=== PATIENT | female | born 1960 | race African-American/Black ===

== ENCOUNTER 2019-04-10 14:50 | Inpatient (IN) | payer OTHER ==
--- NOTE | 2019-04-10 19:43 | BHS.RME ---
Substance Use & Tx History - Last Treatment Where was last treatment: Detox CIWA Nausea/Vomitin Muscle Tremors: 4-Moderate,w/Arms Extend Anxiety: 3 Agitation: 2 Paroxysmal Sweats: 1-Minimal Palms Moist (Patient is not actively withdrawing. She reports detox at [facility]. Patient will benefit from Rehab.) Orientation: 0-Oriented Tacttile Disturbances: 0-None Auditory Disturbances: 0-None Visual Disturbances: 0-None Headache: 3-Moderate CIWA-Ar Total Score: 15
[2019-04-10 20:21] VITALS: BMI 25.0
--- NOTE | 2019-04-10 20:46 | HP ---
CIWA Score Nausea/Vomitin-No Nausea/No Vomiting Muscle Tremors: 2 Anxiety: 4-Mod. Anxious/Guarded Agitation: 4-Moderately Restless Paroxysmal Sweats: 1-Minimal Palms Moist (Patient is not actively withdrawing. She reports detox at [facility]. Patient will benefit from Rehab.) Orientation: 2-Disoriented Date<2 days Tacttile Disturbances: 1-Very Mild Itch/Numbness Auditory Disturbances: 2-Mild Harshness/Frighten Visual Disturbances: 2-Mild Sensitivity Headache: 2-Mild CIWA-Ar Total Score: 20 - Admission Criteria OASAS Guidelines: Admission for Medically Managed Detox: Requires at least one of the followin. CIWA greater than 12 2. Seizures within the past 24 hours 3. Delirium tremens within the past 24 hours 4. Hallucinations within the past 24 hours 5. Acute intervention needed for co occurring medical disorder 6. Acute intervention needed for co occurring psychiatric disorder 7. Severe withdrawal that cannot be handled at a lower level of care (continued vomiting, continued diarrhea, abnormal vital signs) requiring intravenous medication and/or fluids 8. Admitting History and Physical - Past Medical History ...: No - Smoking History Smoking history: Current every day smoker Have you smoked in the past 12 months: No Aproximately how many cigarettes per day: 3 Admission ROS S - HPI Allergies/Adverse Reactions: Allergies Allergy/AdvReac Type Severity Reaction Status Date / Time Penicillins Allergy Verified 04/10/19 20:10 FRUIT JUICE Allergy Hives Uncoded 04/10/19 20:10 History of Present Illness: 58 y.o. female here for detox from alcohol use , reports 1 x 6-pk /day since age 23 , reports not daily use , reports drinking 5-6 x/week , denies seizures , reports occasional tremors , latest use yesterday . Exam Limitations: Clinical Condition - Review of Systems Constitutional: Loss of Appetite, Unintentional Wgt. Loss (reports wt loss 30 lbs in 3 mo) EENT: reports: Other (glasses) Respiratory: reports: No Symptoms reported Cardiac: reports: No Symptoms Reported GI: reports: See HPI : reports: No Symptoms Reported Musculoskeletal: reports: Muscle Pain (neck pain intermittently , known OA neck, spine , knees) Integumentary: reports: Other (vitiligo , went to ER for rash) Neuro: reports: See HPI, Headache Endocrine: reports: See HPI, Other (states does not know whether she is diabetic) Hematology: reports: Anemia Psychiatric: reports: Agitated, Anxious, Disorientated Patient History - Patient Medical History Hx Asthma: No Hx Chronic Obstructive Pulmonary Disease (COPD): No Hx Cardiac Disorders: No Hx Hypertension: No Hx Seizures: No Hx Diabetes: No Hx Gastrointestinal Disorders: No Hx Genitourinary Disorders: No Hx Sexually Transmitted Disorders: No Hx Renal Disease (ESRD): No Hx Depression: Yes Hx Suicide Attempt: Yes Hx Schizophrenia: No - Patient Surgical History Past Surgical History: No Hx Neurologic Surgery: No Hx Cataract Extraction: No Hx Cardiac Surgery: No Hx Lung Surgery: No Hx Breast Surgery: No Hx Breast Biopsy: No Hx Abdominal Surgery: No Hx Appendectomy: No Hx Cholecystectomy: No Hx Genitourinary Surgery: No Hx Section: No Hx Orthopedic Surgery: No Anesthesia Reaction: No - PPD History Previous Implant?: Yes - Reproductive History Patient : No - Smoking Cessation Smoking history: Current every day smoker Have you smoked in the past 12 months: No Aproximately how many cigarettes per day: 3 Hx Chewing Tobacco Use: No Initiated information on smoking cessation: No - Substances abused Alcohol Substance route: Oral Frequency: Daily Amount used: 6 cans of beer Age of first use: 20 Date of last use: 04/10/19 Cocaine Substance route: Inhalation Frequency: Daily Amount used: 60 dollars Age of first use: 23 Date of last use: 04/10/19 Admission Physical Exam BHS - Vital Signs Vital Signs: Vital Signs - 24 hr 04/10/19 20:10 Temperature 97.4 F L Pulse Rate 52 L Respiratory 18 Rate Blood Pressure 153/63 - Physical General Appearance: Yes: Severe Distress, Irritable, Anxious, Other (agitated , hostile and beligerant) HEENTM: Yes: EOMI, Hearing grossly Normal, Normocephalic, Normal Voice Respiratory: Yes: Chest Non-Tender, Lungs Clear, Normal Breath Sounds, No Respiratory Distress, No Accessory Muscle Use Neck: Yes: No masses,lesions,Nodules, Trachea in good position Cardiology: Yes: Regular Rhythm, Regular Rate, S1, S2 Abdominal: Yes: Non Tender, Soft Back: Yes: Normal Inspection Extremities: Yes: Normal Range of Motion, Non-Tender, Other ( r hip pain x 3 mo) Neurological: Yes: Alert, Motor Strength 5/5, Other ( agitated) Integumentary: Yes: Warm, Other (vitiligo) - Diagnostic (1) Cocaine use disorder Current Visit: Yes Status: Chronic (2) Alcohol use disorder Current Visit: Yes Status: Chronic (3) Nicotine dependence Current Visit: Yes Status: Chronic Qualifiers: Nicotine product type: cigarettes Breathalyzer - Breathalyzer Breathalyzer: 0 Inpatient Rehab Admission - Rehab Decision to Admit Inpatient rehab admission?: No
[2019-04-10] MEDS ORDERED: ACETAMINOPHEN 325 MG TABLET (FP) PO PRN ×2 (20:55)
[2019-04-10] MEDS ORDERED: METHOCARBAMOL 500 MG TABLET PO PRN (20:55)
[2019-04-10] MEDS ORDERED: BISMUTH SUBSALICYLATE 524 MG/30 ML UD PO PRN (20:55)
[2019-04-10] MEDS ORDERED: IBUPROFEN 400 MG TABLET (FP) PO PRN (20:55)
[2019-04-10] MEDS ORDERED: NICOTINE POLACRILEX 2 MG GUM BUC PRN (20:55)
[2019-04-10] MEDS ORDERED: hydrOXYzine PAMOATE 25 MG CAPSULE (FP) PO PRN (20:55)
[2019-04-10] MEDS ORDERED: MAGNESIUM CITRATE 300 ML BOTTLE PO PRN (20:55)
[2019-04-10] MEDS ORDERED: MAGNESIUM HYDROX 2400MG/30ML ORAL SUSPENSION 30 ML CUP PO PRN (20:55)
[2019-04-10] MEDS ORDERED: MAG HYDROX/AL HYDROX/SIMETH 30 ML UNIT-DOSE CUP PO PRN (20:55)
[2019-04-10] MEDS ORDERED: MENTHOL/PHENOL 1 EACH UD MM PRN (20:55)
[2019-04-10] MEDS ORDERED: MELATONIN 5 MG TABLETS PO PRN (20:55)
[2019-04-10] MEDS ORDERED: diazePAM 5 MG TABLET PO PRN (20:57)
[2019-04-10] MEDS: ASPIRIN COATED 81 MG TABLET.EC PO SCH (21:39)
[2019-04-10] MEDS: diazePAM 5 MG TABLET PO SCH (21:39)
[2019-04-10] MEDS: THIAMINE HCL 100 MG TABLET (FP) PO SCH (21:40)
[2019-04-11] MEDS: diphenhydrAMINE HCL 25 MG CAPSULE (FP) PO SCH ×5 (05:49→23:11)
[2019-04-11] MEDS: diazePAM 5 MG TABLET PO SCH ×3 (06:18→22:22)
--- NOTE | 2019-04-11 09:10 | PN ---
S CIWA - CIWA Score Nausea/Vomitin Muscle Tremors: 3 Anxiety: 3 Agitation: 0-Normal Activity Paroxysmal Sweats: 2 Orientation: 1-Uncertain about Date Tacttile Disturbances: 0-None Auditory Disturbances: 0-None Visual Disturbances: 2-Mild Sensitivity Headache: 2-Mild CIWA-Ar Total Score: 15 S Progress Note (SOAP) Subjective: 58 years old female admitted on 04/10/19 for alcohol withdrawal sx management treating with valium detox regiment requests aspirin po daily "for oxygen goes to my heart" ensure Ms Blue aspirin today and daily after requests ensure for poor appetite ensure supplement registered safety engineer referral reports allergic to banana requests to be seen by a station cashier adding banana to allergy/adverse reaction Objective: 04/11/19 09:06 Vital Signs Temperature 97.7 F 04/11/19 06:53 Pulse Rate 52 L 04/11/19 06:53 Respiratory Rate 18 04/11/19 07:26 Blood Pressure 158/64 04/11/19 06:53 O2 Sat by Pulse Oximetry (%) 04/11/19 09:07 lab pending 04/11/19 09:10 bp elevation resume amlodipine 10 mg po daily Assessment: 04/11/19 09:11 alcohol withdrawal Plan: valium regiment
[2019-04-11] MEDS: ASPIRIN COATED 81 MG TABLET.EC PO SCH (10:31)
[2019-04-11] MEDS: amLODIPine BESYLATE 10 MG TABLET (FP) PO SCH (10:31)
[2019-04-11] MEDS: predniSONE 20 MG TABLET (UD) PO SCH (10:31)
[2019-04-11] MEDS: PRENATAL VITAMINS W/ FOLIC ACID TABLET (FP) PO SCH (10:31)
[2019-04-11 10:58] LABS: HEMATOCRIT 32.3 % (32.4-45.2); HEMOGLOBIN 10.7 GM/dL (10.7-15.3); MCH 29.9 pg (25.7-33.7); MCHC 33.1 g/dl (32.0-36.0); MEAN CELL VOLUME 90.5 fl (80-96); MEAN PLT VOLUME 8.5 fl (7.5-11.1); PLATELET COUNT 351 K/MM3 (134-434); RBC 3.57 M/mm3 (3.60-5.2); RDW 13.8 % (11.6-15.6)
[2019-04-11 11:08] LABS: ALBUMIN 3.4 g/dl (3.4-5.0); BILIRUBIN,TOTAL 0.3 mg/dL (0.2-1); BLOOD UREA NITROGEN 20.4 mg/dL (7-18); CALCIUM 9.1 mg/dL (8.5-10.1); CREATININE 1.1 mg/dL (0.55-1.3); POTASSIUM 4.4 mmol/L (3.5-5.1)
--- NOTE | 2019-04-11 16:50 | EKG ---
Test Reason : Blood Pressure : / mmHG Vent. Rate : 052 BPM Atrial Rate : 052 BPM P-R Int : 172 ms QRS Dur : 082 ms QT Int : 450 ms P-R-T Axes : 036 041 -46 degrees QTc Int : 418 ms SINUS BRADYCARDIA WITH MARKED SINUS ARRHYTHMIA MINIMAL VOLTAGE CRITERIA FOR LVH, MAY BE NORMAL VARIANT T WAVE ABNORMALITY, CONSIDER INFEROLATERAL ISCHEMIA ABNORMAL ECG Confirmed by MD UMESH, JENNIFER ([id number]) on 04/11/2019 4:49:42 PM Referred By: CHRIS Confirmed By:JENNIFER CALVO MD
[2019-04-11] MEDS: THIAMINE HCL 100 MG TABLET (FP) PO SCH (22:22)
[2019-04-12] MEDS ORDERED: diazePAM 5 MG TABLET PO SCH (06:00)
[2019-04-12] MEDS: diphenhydrAMINE HCL 25 MG CAPSULE (FP) PO SCH ×2 (06:59→12:58)
[2019-04-12] MEDS ORDERED: cloNIDine HCL 0.1 MG TABLET PO PRN (09:59)
--- NOTE | 2019-04-12 10:01 | PN ---
[facility] CIWA - CIWA Score Nausea/Vomitin-No Nausea/No Vomiting Muscle Tremors: 2 Anxiety: 2 Agitation: 2 Paroxysmal Sweats: 2 Orientation: 0-Oriented Tacttile Disturbances: 1-Very Mild Itch/Numbness Auditory Disturbances: 0-None Visual Disturbances: 0-None Headache: 1-Very Mild CIWA-Ar Total Score: 10 S Progress Note (SOAP) Subjective: 58 years old female admitted on 04/10/19 for alcohol withdrawal sx management treating with valium detox regiment patient exhibits aggressive threatening behavior toward a male peer in day room multidisciplinary team includes nursing supervisor packing room, the nurse, railroad construction director, counselor, and account underwriter patient refuses to be seen by a psychiatrist yesterday be seen by a psychiatrist today patient denies suicidal no homocidal ideation no self destructive behavior patient is alert oriented x 3 no acute distress Objective: 04/12/19 10:19 Vital Signs Temperature 97.1 F L 04/12/19 08:46 Pulse Rate 58 L 04/12/19 08:46 Respiratory Rate 16 04/12/19 08:46 Blood Pressure 150/60 04/12/19 08:46 O2 Sat by Pulse Oximetry (%) Laboratory Last Values WBC 7.0 K/mm3 (4.0-10.0) 04/11/19 08:00 RBC 3.57 M/mm3 (3.60-5.2) L 04/11/19 08:00 Hgb 10.7 GM/dL (10.7-15.3) 04/11/19 08:00 Hct 32.3 % (32.4-45.2) L 04/11/19 08:00 MCV 90.5 fl (80-96) 04/11/19 08:00 MCH 29.9 pg (25.7-33.7) 04/11/19 08:00 MCHC 33.1 g/dl (32.0-36.0) 04/11/19 08:00 RDW 13.8 % (11.6-15.6) 04/11/19 08:00 Plt Count 351 K/MM3 (134-434) 04/11/19 08:00 MPV 8.5 fl (7.5-11.1) 04/11/19 08:00 Sodium 139 mmol/L (136-145) 04/11/19 08:00 Potassium 4.4 mmol/L (3.5-5.1) 04/11/19 08:00 Chloride 106 mmol/L (98-107) 04/11/19 08:00 Carbon Dioxide 27 mmol/L (21-32) 04/11/19 08:00 Anion Gap 5 MMOL/L (8-16) L 04/11/19 08:00 BUN 20.4 mg/dL (7-18) H 04/11/19 08:00 Creatinine 1.1 mg/dL (0.55-1.3) 04/11/19 08:00 Est GFR (CKD-EPI)AfAm 64.54 04/11/19 08:00 Est GFR (CKD-EPI)NonAf 55.69 04/11/19 08:00 Random Glucose 120 mg/dL (74-106) H 04/11/19 08:00 Calcium 9.1 mg/dL (8.5-10.1) 04/11/19 08:00 Total Bilirubin 0.3 mg/dL (0.2-1) 04/11/19 08:00 AST 17 U/L (15-37) 04/11/19 08:00 ALT 21 U/L (13-61) 04/11/19 08:00 Alkaline Phosphatase 74 U/L (45-117) 04/11/19 08:00 Total Protein 7.0 g/dl (6.4-8.2) 04/11/19 08:00 Albumin 3.4 g/dl (3.4-5.0) 04/11/19 08:00 RPR Titer Nonreactive (NONREACTIVE) 04/11/19 08:00 lab noted long history of hypertension none adherence with antihypertensive medication encourage picker/puller medication from pharmacy 04/12/19 11:29 Assessment: 04/12/19 11:33 alcohol withdrawal Plan: valium regiment
--- NOTE | 2019-04-12 10:05 | CONSULT ---
[facility] Psychiatric Consult - Data Date of interview: 04/12/19 Admission source: [facility] Identifying data: Patient is a 58 year old single female, without children, unemployed, and is not currently receiving financial assistance. This is patient's first admission to detox at [facility]. Patient admitted to for alcohol and cocaine dependence. Substance Abuse History: Smoking Cessation. Smoking history: Current every day smoker. Have you smoked in the past 12 months: No. Aproximately how many cigarettes per day: 3. Hx Chewing Tobacco Use: No. Initiated information on smoking cessation: No. - Substances abused. Alcohol. Substance route: Oral. Frequency: Daily. Amount used: 6 cans of beer. Age of first use: 20. Date of last use: 04/10/19. Cocaine. Substance route: Inhalation. Frequency: Daily. Amount used: 60 dollars. Age of first use: 23. Date of last use: 04/10/19 Medical History: denies. Psychiatric History: Patient reports history of one psychiatric hospitalizations in the at [facility] in [place], [place]. Patient states she was experiencing alot of stressors and was able to admit herself into a psychiatric unit (unable to be specific). She reports one CPEP admission at [facility] in the after her mother called 911 as she thought her daugher was going to hurt herself. Patient reports a vague history of current outpatient psychiatric care. States that she last saw a psychiatrist on [address] several months ago and was prescribed seroquel 50mg. Patient reports poor compliance with medications. Reports a past diagnosis of bipolar disorder. Patient is slightly irritable. She denies auditory/visual hallucinations, sucidal/homicidal ideation. No psychosis noted. Physical/Sexual Abuse/Trauma History: denies. Mental Status Exam - Mental Status Exam Alert and Oriented to: Time, Place, Person Cognitive Function: Good Patient Appearance: Well Groomed Mood: Irritable Affect: Mood Congruent Patient Behavior: Cooperative (cooperative while speaking with instructional writer) Speech Pattern: Appropriate Voice Loudness: Normal Thought Process: Goal Oriented Thought Disorder: Not Present Hallucinations: Denies Suicidal Ideation: Denies Homicidal Ideation: Denies Sleep: Poorly Appetite: Fair Muscle strength/Tone: Normal Gait/Station: Normal Psychiatric Findings - Problem List ([place] 1, 2,3) (1) Substance induced mood disorder Status: Suspected (2) Alcohol use disorder Status: Acute (3) Cocaine use disorder Status: Chronic (4) Nicotine dependence Status: Acute Qualifiers: Nicotine product type: cigarettes Substance use status: in withdrawal Qualified Code(s): F17.213 - Nicotine dependence, cigarettes, with withdrawal (5) Mood disorder Status: Chronic - Initial Treatment Plan Initial Treatment Plan: Psychoeducation provided. Detoxification in progress. Will order Seroquel 25mg HS. Patient not intested in accepting additional medications during the day for irritability as she reports already being prescribed valium +benadryl. Benefits and side effects discussed. Verbal consent given.
[2019-04-12] MEDS: amLODIPine BESYLATE 10 MG TABLET (FP) PO SCH (10:38)
[2019-04-12] MEDS: ASPIRIN COATED 81 MG TABLET.EC PO SCH (10:38)
[2019-04-12] MEDS: PRENATAL VITAMINS W/ FOLIC ACID TABLET (FP) PO SCH (10:38)
[2019-04-12] MEDS: predniSONE 20 MG TABLET (UD) PO SCH (10:38)
--- NOTE | 2019-04-12 13:17 | DS ---
[facility] Detox Discharge Summary Admission Date: 04/10/19 Discharge Date: 04/12/19 - History Present History: Alcohol Dependence Additional Comments: 58 years old female admitted on 04/10/19 for alcohol withdrawal sx management treated with valium detox regiment seen by psychiatrist no medical intervention at this time Ms Loza is one day short than estimated discharge date of 04/13/19 reports feeling better accept aftercare at [facility] respiratory clear lungs bilaterally on auscultation extremities full range of motion skin warm and dry - Physical Exam Results Vital Signs: Vital Signs Temperature 97.1 F L 04/12/19 08:46 Pulse Rate 58 L 04/12/19 08:46 Respiratory Rate 16 04/12/19 08:46 Blood Pressure 150/60 04/12/19 08:46 O2 Sat by Pulse Oximetry (%) Pertinent Admission Physical Exam Findings: time for discharge 64 minutes multidisciplinary team met with the patient due to verbal confrontation with peer security were called nursing coordinator was present, city director join the safety discussion with the patient Ms Loza remain confrontational and augmentative the team made consensus decision that Ms Loza may benefit from [facility] program - Treatment Hospital Course: Detox Protocol Followed, Detoxed Safely, Responded well, Discharged Condition Good, Rehab Referral Accepted Patient has Accepted a Rehab Referral to: [facility] - Medication Discharge Medications: Ambulatory Orders Diphenhydramine [Benadryl Capsule -] 50 mg PO QID PRN #12 capsule 04/10/19 predniSONE [Deltasone -] 40 mg PO DAILY 2 Days #4 tablet 04/10/19 Amlodipine Besylate [Norvasc -] 10 mg PO DAILY #30 tablet 04/12/19 - Diagnosis (1) Substance induced mood disorder Status: Suspected (2) Alcohol use disorder Status: Acute (3) Nicotine dependence Status: Acute Qualifiers: Nicotine product type: cigarettes Substance use status: in withdrawal Qualified Code(s): F17.213 - Nicotine dependence, cigarettes, with withdrawal - AMA Did Patient Leave Against Medical Advice: No CIWA Score - CIWA Score Nausea/Vomitin-No Nausea/No Vomiting Muscle Tremors: 2 Anxiety: 2 Agitation: 2 Paroxysmal Sweats: 2 Orientation: 0-Oriented Tacttile Disturbances: 0-None Auditory Disturbances: 0-None Visual Disturbances: 0-None Headache: 0-None Present CIWA-Ar Total Score: 8
[2019-04-12 13:25] VITALS: BP 138/61; PULSE 56; TEMP 96.5
[2019-04-13] MEDS ORDERED: diazePAM 5 MG TABLET PO ONE (06:00)
== END 2019-04-12 12:58 | disposition home or self-care (01) | DRG 774 ==
LOC: YASAS 14:50 → Y3N 21:12
PROVIDERS: ADMIT Allergy & Immunology; ATTEND Allergy & Immunology
PROC: HZ2ZZZZ Detoxification Services for Substance Abuse Treatment (ICD-10-PCS; principal; 2019-04-10)
DX: F10.230 Alcohol dependence with withdrawal, uncomplicated (principal); F14.20 Cocaine dependence, uncomplicated; F17.213 Nicotine dependence, cigarettes, with withdrawal; F19.24 Other psychoactive substance dependence with psychoactive substance-induced mood disorder; F32.9 Major depressive disorder, single episode, unspecified; I10 Essential (primary) hypertension; Z91.5 Personal history of self-harm; Z88.0 Allergy status to penicillin; Z91.013 Allergy to seafood; Z59.0 Homelessness
CPT/HCPCS: 36415; 80053; 85027; 86593; 93005; 93010

== ENCOUNTER 2019-04-10 17:26 | Emergency (ER) | payer OTHER ==
[2019-04-10 17:38] VITALS: BP 153/63; PULSE 52; TEMP 97.4; BMI 25.6
--- NOTE | 2019-04-10 17:42 | PDOC ---
History of Present Illness - General History Source: Patient Exam Limitations: No Limitations - History of Present Illness Initial Comments: 04/10/19 17:42 Sharda Loza is a 58F with known history of red dye allergy, presenting with allergic reaction to fruit punch. Patient accidentally ingested red fruit punch and began having itchiness and facial swelling with wheals on back, which is a known reaction for her. Denies SOB, difficulty breathing, throat tightness. Sent from [facility] for alcohol and cocaine detox. Patient unwilling to divulge more information about drug use at this time. <Nabil Nance - Last Filed: 04/10/19 19:00> <Mariama Benjamin - Last Filed: 04/12/19 10:27> - General Chief Complaint: Allergic Reaction Stated Complaint: ALLERGIC REACTION Time Seen by Provider: 04/10/19 17:41 Past History - Past Medical History Cardiac Disorders: Yes (HEART MUMMER ENLARGED HEART) COPD: No Psychiatric Problems: Yes - Psycho Social/Smoking Cessation Hx Smoking History: Current every day smoker Have you smoked in the past 12 months: Yes Number of Cigarettes Smoked Daily: 3 Information on smoking cessation initiated: Yes Hx Alcohol Use: Yes Drug/Substance Use Hx: Yes <Nabil Nance - Last Filed: 04/10/19 19:00> <Mariama Benjamin - Last Filed: 04/12/19 10:27> - Past Medical History Allergies/Adverse Reactions: Allergies Allergy/AdvReac Type Severity Reaction Status Date / Time Penicillins Allergy Verified 04/10/19 20:10 banana AdvReac Verified 04/11/19 09:02 FRUIT JUICE Allergy Hives Uncoded 04/10/19 20:10 Home Medications: Ambulatory Orders Diphenhydramine [Benadryl Capsule -] 50 mg PO QID PRN #12 capsule 04/10/19 predniSONE [Deltasone -] 40 mg PO DAILY 2 Days #4 tablet 04/10/19 Review of Systems - Review of Systems Able to Perform ROS?: Yes Constitutional: No: Chills, Fever HEENTM: No: Eye Pain, Tearing Respiratory: No: Cough, Shortness of Breath, SOB with Exertion, SOB at Rest Cardiac (ROS): No: Chest Pain, Edema, Irregular Heart Rate, Lightheadedness, Palpitations ABD/GI: No: Constipated, Diarrhea, Nausea, Poor Appetite, Poor Fluid Intake, Vomiting : No: Symptoms Reported Musculoskeletal: No: Symptoms Reported Integumentary: Yes: Erythema, Lesions, Pruritus, Rash Neurological: No: Symptoms reported Endocrine: No: Symptoms Reported Hematologic/Lymphatic: No: Symptoms Reported All Other Systems: Reviewed and Negative <GoyoNabil - Last Filed: 04/10/19 19:00> *Physical Exam - Vital Signs Last Vital Signs Temp Pulse Resp BP Pulse Ox 97.4 F L 52 L 18 153/63 98 04/10/19 17:34 04/10/19 17:34 04/10/19 17:34 04/10/19 17:34 04/10/19 17:34 - Physical Exam General Appearance: Yes: Nourished, Appropriately Dressed. No: Apparent Distress HEENT: positive: EOMI, REENE, Normal ENT Inspection, Normal Voice, Symmetrical, Pharynx Normal, Other (swelling to lips and face, oropharynx clear). negative: Scleral Icterus (R), Scleral Icterus (L), Pharyngeal Erythema, Tonsillar Exudate , Tonsillar Erythema Neck: positive: Trachea midline, Normal Thyroid, Supple. negative: Tender, Rigid, Lymphadenopathy (R), Lymphadenopathy (L), Tender lateral, Tender midline Respiratory/Chest: positive: Lungs Clear, Normal Breath Sounds. negative: Chest Tender, Respiratory Distress, Accessory Muscle Use, Crackles, Rales, Rhonchi, Stridor, Wheezing Cardiovascular: positive: Regular Rhythm, Regular Rate. negative: Murmur Gastrointestinal/Abdominal: positive: Normal Bowel Sounds, Flat. negative: Tender, Organomegaly, Pulsatile Mass, Guarding Musculoskeletal: positive: Normal Inspection. negative: CVA Tenderness, Vertebral Tenderness Extremity: positive: Normal Capillary Refill, Normal Inspection, Pelvis Stable. negative: Normal Range of Motion, Tender Integumentary: positive: Normal Color, Dry, Warm, Rash (urticaria to back and chest) Neurologic: positive: Fully Oriented, Alert, Normal Mood/Affect, Normal Response <Nabil Nance - Last Filed: 04/10/19 19:00> - Vital Signs Last Vital Signs Temp Pulse Resp BP Pulse Ox 97.4 F L 52 L 18 153/63 98 04/10/19 17:34 04/10/19 17:34 04/10/19 17:34 04/10/19 17:34 04/10/19 17:34 <Mariama Benjamin - Last Filed: 04/12/19 10:27> ED Treatment Course - Medications Given in the ED: ED Medications Discontinued Medications Generic Name Dose Route Start Last Admin Trade Name Freq PRN Reason Stop Dose Admin Diphenhydramine HCl 50 mg 04/10/19 17:54 04/10/19 18:11 Benadryl - PO 04/10/19 17:55 50 mg ONCE ONE Administration Prednisone 40 mg 04/10/19 17:54 04/10/19 18:11 Deltasone - PO 04/10/19 17:55 40 mg ONCE ONE Administration <Mariama Benjamin - Last Filed: 04/12/19 10:27> Medical Decision Making - Medical Decision Making 04/10/19 18:54 Patient presents with urticaria and facial edema consistent with uncomplicated allergic reaction. Satting well on RA, breathing well and speaking in full sentences, no concerning pharyngeal edema. Giving 50mg Benadryl and 40mg prednisone, with Rx sent to [facility] at [facility]. Stable to be discharged back to [facility] at this time after getting medications. <Nabil Nance - Last Filed: 04/10/19 19:00> Discharge - Discharge Information Problems reviewed: Yes - Admission No <Nabil Nance - Last Filed: 04/10/19 19:00> - Admission No <Mariama Benjamin - Last Filed: 04/12/19 10:27> - Discharge Information Clinical Impression/Diagnosis: Urticaria Allergic reaction Qualifiers: Encounter type: initial encounter Qualified Code(s): T78.40XA - Allergy, unspecified, initial encounter Condition: Stable Disposition: HOME - Additional Discharge Information Prescriptions: Diphenhydramine [Benadryl Capsule -] 50 mg PO QID PRN #12 capsule PRN Reason: Allergies predniSONE [Deltasone -] 40 mg PO DAILY 2 Days #4 tablet - Patient Discharge Instructions Patient Printed Discharge Instructions: DI for General Allergic Reactions Additional Instructions: Today you were evaluated for an allergic reaction. We have given you Benadryl and prednisone to control your swelling and rash. We ahve sent more Benadryl and prednisone to the pharmacy at [facility]. Please take each as prescribed. If you experience difficulty breathing, become unable to swallow, or have any other new or concerning symptoms, please return to the emergency room.
[2019-04-10] MEDS ORDERED: diphenhydrAMINE HCL 25 MG CAPSULE (FP) PO ONE ×2 (17:54→18:08)
[2019-04-10] MEDS ORDERED: predniSONE 20 MG TABLET (UD) PO ONE (17:54)
--- NOTE | 2019-04-10 18:05 | PDOC ---
Attending Attestation - Resident Resident Name: Nabil Nance - ED Attending Attestation I have performed the following: I have examined & evaluated the patient, The case was reviewed & discussed with the resident, I agree w/resident's findings & plan - HPI HPI: 04/10/19 18:00 Sharda Loza is a 58F presenting with allergic reaction to fruit juice. 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 c/o itchy rash on her back and upper arm. no cp or sob, respiratory distress, abdominal pain, n/v, diarrhea. no sore throat or throat pain, headache, dizziness - Physicial Exam PE: 04/10/19 18:01 Agree with the resident's HPI and PE as documented in the electronic medical record. NCAT, PERRL, EOMI, clear conjunctiva, anicteric, moist mucus membranes, oropharynx clear. Airway patent, normal phonation. Uvula midline. no tonsillar hypertrophy. neck supple. lungs clear, RRR, abdomen soft nontender. no rebound, guarding. Back nontender. RUBIN x4, no focal neuro deficits. No peripheral edema. normal color for ethnicity, WWP. multiple areas of hypopigmentation around b/l upper arms and mouth. +urticaria to her b/l upper inner arms and back. - Medical Decision Making 04/10/19 18:03 Vital Signs Temp Pulse Resp BP Pulse Ox 97.4 F L 52 L 18 153/63 98 04/10/19 17:34 04/10/19 17:34 04/10/19 17:34 04/10/19 17:34 04/10/19 17:34 DDx. allergic reaction: hypersensitivity reaction, allergic reaction, anaphylaxis, hives/urticaria. drug rash. dermatitis. serum sickness. vasculitis. medication side effect. -No fevers or systemic findings, clinically well appearing. no mucosal involvement so doubt SJS/TEN. airway patent, doubt anaphylaxis or Dress syndrome. - No evidence of erythema multiforme, SJS/TEN, Lyme, cellulitis, necrotizing fasciitis, no angioedema, meningococcemia, samson mountain spotted fever. - given steroids, benadryl, with clinical improvement. VS wnl, stable, no hypotension. pt is well appearing, ambulatory in department, NAD and no e/o intoxication. - instructions on avoiding triggers, as clear trigger from known h/o allergy to food dye, so told to avoid. no epi indicated, no e/o anaphylaxis. prednisone x 2 more days, benadryl Q6-8 hr ATC x 3 days, Discharge: Does not appear at this time to be erythema multiforme, bullous, SJS , TEN; no evidence at this time to suggest RMSF or endocarditis or Lyme disease ; patient looks well, nontoxic and is tolerating oral intake; no neurologic signs or symptoms; no headache or photophobia or neck pain; no ev of sepsis; question viral exanthem; afebrile; appropriate for initial o/p tx; d/w pt importance of f/u and pt agrees/understands; told pt to return to nearest ER immediately for any worsening sx incl but not limited to: fever, spreading rash , pain, sore throat, headache, dizziness, chest pain, trouble breathing, or any ssx concerning to the patient. I did d/w pt the aforementioned ddx as possibilities and pt understands to f/u even if better and to return to ER if un -changed/worse. Pt understands these instructions on d/c and is comfortable with discharge plan. DC back to [facility] where she was seeking detox
[2019-04-10] MEDS ORDERED: predniSONE 20 MG TABLET (UD) ONE (18:08)
--- NOTE | 2019-04-11 14:01 | CONSULT ---
[facility] Psychiatric Consult - Data Date of interview: 04/11/19 Admission source: [facility] Identifying data: Two attempts made to conduct psychiatric interview as per request by medical provider. Ms Loza refused psychiatric evaluation. Nursing staff is made aware.
== END 2019-04-10 18:27 | disposition home or self-care (01) ==
LOC: JER 17:26
DX: L50.0 Allergic urticaria (principal); T78.40XA Allergy, unspecified, initial encounter; Z88.0 Allergy status to penicillin; Z91.02 Food additives allergy status; F10.10 Alcohol abuse, uncomplicated; F14.10 Cocaine abuse, uncomplicated
CPT/HCPCS: 99285-25

== ENCOUNTER 2020-07-17 18:51 | Inpatient (IN) | payer OTHER ==
[2020-07-17 19:56] VITALS: BMI 23.0
[2020-07-17] MEDS ORDERED: diphenhydrAMINE HCL 25 MG CAPSULE (FP) PO ONE (21:08)
[2020-07-17] MEDS ORDERED: guaiFENesin 200 MG/10 ML 10 ML UNIT-DOSE CUPS PO PRN (21:09)
[2020-07-17] MEDS ORDERED: MAG HYDROX/AL HYDROX/SIMETH 30 ML UNIT-DOSE CUP PO PRN (21:09)
[2020-07-17] MEDS ORDERED: ACETAMINOPHEN 325 MG TABLET (FP) PO PRN (21:09)
[2020-07-17] MEDS ORDERED: NICOTINE POLACRILEX 2 MG GUM BC PRN (21:09)
[2020-07-17] MEDS ORDERED: hydrOXYzine PAMOATE 25 MG CAPSULE (FP) PO PRN (21:09)
[2020-07-17] MEDS ORDERED: LOPERAMIDE HCL 2 MG CAPSULE PO PRN (21:09)
[2020-07-17] MEDS ORDERED: P-EPHED 60MG/TRIPROLIDI 2.5MG TABLET PO PRN (21:09)
[2020-07-17] MEDS ORDERED: MAGNESIUM HYDROX 2400MG/30ML ORAL SUSPENSION 30 ML CUP PO PRN (21:09)
[2020-07-17] MEDS ORDERED: MAGNESIUM CITRATE 300 ML BOTTLE PO PRN (21:09)
[2020-07-17] MEDS ORDERED: IBUPROFEN 400 MG TABLET (FP) PO PRN (21:09)
[2020-07-18] MEDS ORDERED: amLODIPine BESYLATE 5 MG TABLET (FP) ONE (01:47)
[2020-07-18] MEDS ORDERED: diphenhydrAMINE HCL 25 MG CAPSULE (FP) PO ONE (01:47)
[2020-07-18] MEDS: MELATONIN 5 MG TABLETS PO SCH ×2 (01:53→21:39)
[2020-07-18] MEDS: amLODIPine BESYLATE 10 MG TABLET (FP) PO SCH ×2 (01:53→10:37)
[2020-07-18] MEDS: ASPIRIN COATED 81 MG TABLET.EC PO SCH ×2 (01:54→10:37)
[2020-07-18] MEDS: THIAMINE HCL 100 MG TABLET (FP) PO SCH ×2 (01:54→21:39)
[2020-07-18 04:22] VITALS: TEMP 97.2
[2020-07-18] MEDS: PRENATAL VITAMINS W/ FOLIC ACID TABLET (FP) PO SCH (10:36)
[2020-07-18 11:28] LABS: HEMATOCRIT 32.3 % (32.4-45.2); HEMOGLOBIN 10.8 GM/dL (10.7-15.3); MCH 30.2 pg (25.7-33.7); MCHC 33.5 g/dl (32.0-36.0); MEAN CELL VOLUME 90.2 fl (80-96); MEAN PLT VOLUME 8.3 fl (7.5-11.1); PLATELET COUNT 350 K/MM3 (134-434); RBC 3.58 M/mm3 (3.60-5.2); RDW 14.7 % (11.6-15.6); WHITE BLOOD COUNT 8.4 K/mm3 (4.0-10.0)
[2020-07-18 11:50] LABS: ALBUMIN 3.5 g/dl (3.4-5.0); BILIRUBIN,TOTAL 0.2 mg/dL (0.2-1)
[2020-07-18 11:52] LABS: BLOOD UREA NITROGEN 19.7 mg/dL (7-18)
[2020-07-18 11:53] LABS: CALCIUM 9.2 mg/dL (8.5-10.1)
[2020-07-18 11:58] LABS: TOT PROT 6.9 g/dl (6.4-8.2)
[2020-07-19 00:20] LABS: PH,URINE 8.5 (5.0-8.0); URINE APPEARANCE CLEAR; URINE BILIRUBIN NEGATIVE (NEGATIVE); URINE COLOR YELLOW; URINE GLUCOSE (UA) NEGATIVE (NEGATIVE); URINE KETONE NEGATIVE (NEGATIVE); URINE LEUK ESTERASE NEGATIVE (NEGATIVE); URINE NITRITE NEGATIVE (NEGATIVE); URINE PROTEIN NEGATIVE (NEGATIVE); URINE UROBILINOGEN 0.2 mg/dL (0.2-1.0)
[2020-07-19] MEDS: ASPIRIN COATED 81 MG TABLET.EC PO SCH (10:37)
[2020-07-19] MEDS: amLODIPine BESYLATE 10 MG TABLET (FP) PO SCH (10:37)
[2020-07-19] MEDS: PRENATAL VITAMINS W/ FOLIC ACID TABLET (FP) PO SCH (10:38)
[2020-07-19] MEDS ORDERED: COLLOIDAL OATMEAL 1 BAR EACH TP PRN (14:31)
[2020-07-19] MEDS: diphenhydrAMINE HCL 25 MG CAPSULE (FP) PO PRN (14:53)
[2020-07-19] MEDS: THIAMINE HCL 100 MG TABLET (FP) PO SCH (21:53)
[2020-07-19] MEDS: MELATONIN 5 MG TABLETS PO SCH (21:53)
[2020-07-20 08:49] VITALS: BP 142/62; PULSE 59
[2020-07-20] MEDS: amLODIPine BESYLATE 10 MG TABLET (FP) PO SCH (10:08)
[2020-07-20] MEDS: ASPIRIN COATED 81 MG TABLET.EC PO SCH (10:08)
[2020-07-20] MEDS: PRENATAL VITAMINS W/ FOLIC ACID TABLET (FP) PO SCH (10:08)
[2020-07-20] MEDS: diphenhydrAMINE HCL 25 MG CAPSULE (FP) PO PRN (19:08)
== END 2020-07-20 19:40 | disposition left against medical advice (07) | DRG 770 ==
LOC: YASAS 18:51 → Y5N 07-18 01:31
PROVIDERS: ADMIT Allergy & Immunology; ATTEND Allergy & Immunology
PROC: HZ42ZZZ Group Counseling for Substance Abuse Treatment, Cognitive-Behavioral (ICD-10-PCS; principal; 2020-07-18)
DX: F10.20 Alcohol dependence, uncomplicated (principal); F14.20 Cocaine dependence, uncomplicated; F17.210 Nicotine dependence, cigarettes, uncomplicated; F41.9 Anxiety disorder, unspecified; I10 Essential (primary) hypertension; L29.8 Other pruritus; L80 Vitiligo; Z88.0 Allergy status to penicillin; Z91.018 Allergy to other foods
CPT/HCPCS: 36415; 80053; 81003; 85027; 86780; C9803; U0003; U0005